=== PATIENT | male | born 1945 | race Caucasian/White ===

== ENCOUNTER 2018-05-04 12:03 | Day surgery (SDC) | payer OTHER ==
[~2018-05-04] VITALS: Ht 180.3 cm; Wt 98.6 kg
[~2018-05-04 12:03] MED LIST: ASPI81CH; ATOR20; Cipro500 MG PO; LISI20 PO; METO50ER; METOPROLOL; PRAVASTATIN; Pyridium200 MG PO; RXHYDMOR2 PO; RXONDA4ODT MM; SIMV10 PO
== END 2018-05-04 14:35 | disposition home or self-care (01) ==
LOC: ORSCSDS 12:03
PROVIDERS: Surgery
PROC: 0DJD8ZZ Inspection of Lower Intestinal Tract, Via Natural or Artificial Opening Endoscopic (ICD-10-PCS; principal; 2018-05-04 13:30)
DX: Z12.11 Encounter for screening for malignant neoplasm of colon (principal); Z86.010 Personal history of colon polyps; E78.00 Pure hypercholesterolemia, unspecified; I10 Essential (primary) hypertension; J45.909 Unspecified asthma, uncomplicated; E66.9 Obesity, unspecified; Z68.30 Body mass index [BMI] 30.0-30.9, adult; Z79.82 Long term (current) use of aspirin; Z79.899 Other long term (current) drug therapy

== ENCOUNTER 2018-11-05 04:11 | Emergency (ER) | payer OTHER ==
[~2018-11-05] VITALS: Ht 180.3 cm; Wt 97.5 kg
[2018-11-05 04:47] LABS: Alanine Aminotransfer (ALT/SGP 50 U/L (12-78); Albumin, Blood 3.9 g/dL (3.4-5.0); Albumin/Globulin Ratio 1.2 (0.8-1.8); Alk Phos 68 U/L (50-136); Anion Gap 9 mmol/L (6-16); Aspartate Aminotrans (AST/SGOT 31 U/L (12-37); Bilirubin, Total 0.5 mg/dL (0.1-1.0); Blood Urea Nitrogen 25 mg/dL (8-24); Bun/Creatinine Ratio 21.2 (12.0-20.0); CO2, Blood 26 mmol/L (21-32); Calcium, Blood 8.5 mg/dL (8.5-10.1); Chloride, Blood 107 mmol/L (98-108); Creatinine, Blood 1.18 mg/dL (0.60-1.20); Globulin, Blood 3.3 g/dL (2.2-4.0); Glomerular Filtration Rate >60 (60-); Glucose, Blood 158 mg/dL (70-99); Potassium, Blood 3.8 mmol/L (3.5-5.5); Sodium, Blood 142 mmol/L (136-145); Total Protein, Blood 7.2 g/dL (6.4-8.2)
[2018-11-05] MEDS ORDERED: Zofran4 MG PO (05:16)
[2018-11-05] MEDS ORDERED: Norco 5-325 Ta1 EACH PO (05:16)
== END 2018-11-05 06:19 | disposition home or self-care (01) ==
LOC: ER 04:11
PROVIDERS: Emergency Medicine
DX: N13.2 Hydronephrosis with renal and ureteral calculous obstruction (principal); I10 Essential (primary) hypertension; E78.00 Pure hypercholesterolemia, unspecified; Z79.899 Other long term (current) drug therapy
CPT/HCPCS: 36415; 74176; 80053; 96374; 96375; 99284-25; J1170; J1885; J2405; J7030

== ENCOUNTER → 2021-10-11 | Outpatient (CLI) | payer OTHER ==
[~2021-10-11] MED LIST changes: +Norco 5-325 Ta1 EACH PO; +Zofran4 MG PO
[2021-10-11 13:43] LABS: Stool Occult Bld Immuno 1 Negative (NEGATIVE)
== END | disposition home or self-care (01) ==
LOC: LAB SHORT 11:34 → LAB 11:34
PROVIDERS: Internal Medicine
DX: Z12.11 Encounter for screening for malignant neoplasm of colon (principal)
CPT/HCPCS: G0328